=== PATIENT | female | born 1960 | race Caucasian/White ===

== ENCOUNTER → 2019-08-27 11:54 | Outpatient (BNVA) | payer BC, SELFPAY | PROVIDERS: Family Provider Nurse Practitioner Family; PCP Nurse Practitioner Family; Visit Provider Nurse Practitioner Family | DX: R50.9 Fever, unspecified (principal); W57.XXXA Bitten or stung by nonvenomous insect and other nonvenomous arthropods, initial encounter | CPT/HCPCS: 87400; 87635; 87880 ==

== ENCOUNTER → 2019-09-10 10:35 | Outpatient (BNVA) | payer BC, SELFPAY | PROVIDERS: Family Provider Nurse Practitioner Family; PCP Nurse Practitioner Family; Visit Provider Nurse Practitioner Family | DX: U07.1 COVID-19 (principal) | CPT/HCPCS: 87635 ==

== ENCOUNTER → 2019-09-17 11:31 | Outpatient (BNVA) | payer BC, SELFPAY | PROVIDERS: Family Provider Nurse Practitioner Family; PCP Nurse Practitioner Family; Visit Provider Nurse Practitioner Family | DX: U07.1 COVID-19 (principal) | CPT/HCPCS: 87635 ==

== ENCOUNTER 2019-11-28 14:38 | Emergency (ER) | payer BC, SELFPAY ==
[2019-11-28 14:39] VITALS: BP 177/98; PULSE 85; RESP 20; O2SAT 93; BMI 27.3
--- NOTE | 2019-11-28 14:46 | XR_ITS ---
WS: [id number] Portable AP upright chest, 11/28/2019 Clinical Data: Cough/shortness of breath Comparison: None. Findings: No nodules, masses or effusions are seen. The heart is normal. The pulmonary vascularity is not increased. No pneumonia or pneumothorax is seen. XR/XR chest 1V portable [id number] Impression: Negative chest.
--- NOTE | 2019-11-28 14:48 | ECG_ITS ---
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 Measurements Intervals [address] Rate: 83 P: 1 W[place]: 152 QRS: -7 QRSD: 84 T: -1 QT: 341 QTc: 401 Interpretive Statements SINUS RHYTHM MODERATE VOLTAGE CRITERIA FOR LVH, CONSIDER NORMAL VARIANT [MEETS CRITERIA IN ONE OF: R(aVL), S(V1), R(V5), R(V5/V6)+S(V1)] No previous ECG available for comparison Electronically Signed On 11-29-2019 11:35:22 CDT by Nan Austin M.D. [id number] f
[2019-11-28] MEDS: albuterol 8 gm MDI 6 PUFF INHALATION (15:05)
[2019-11-28 15:06] VITALS: PULSE 88; RESP 16; O2SAT 96
[2019-11-28 15:13] VITALS: PULSE 87; RESP 17; O2SAT 97
[2019-11-28 15:17] LABS: Alveolar-Arterial Oxygen Gradi 0.4 mmHg (5-10); Arterial Blood Gas Hematocrit 36.8 % (37-47); Blood Gas Allen Test Pos; Blood Gas Sample Type Arterial; Carboxyhemoglobin 2.5 %THgb (0.4-20.1); HGB O2 Sat 94.6 % (95-100); Ionized Calcium Level - ABG 1.2 mmol/L (1.1-1.4); Methemoglobin 1.1 % (0.4-1.5); Oxygen Saturation ABG 98.1
[2019-11-28 15:19] LABS: Blood Gas Operator Identificat ED; Blood Gas Sample Site Radial, right
[2019-11-28 15:20] LABS: ABG PH Result 7.51 (7.35-7.45); HCO3 ABG 25.7 mmol/L (22-26)
[2019-11-28 15:53] VITALS: BP 167/98; PULSE 94; RESP 24; O2SAT 88
[2019-11-28] MEDS: dexamethasone 4 mg/mL INJ 8 MG IVP (15:55)
[2019-11-28] MEDS: sodium chloride 0.9% 1,000 ML 999 ML IV (15:56)
[2019-11-28 16:04] VITALS: BP 167/98; PULSE 89; RESP 20; O2SAT 97
--- NOTE | 2019-11-28 16:08 | W.ED.SOB ---
HPI - SOB/Dyspnea General: Chief Complaint: Shortness of Breath/Dyspnea Stated Complaint: COUGH/ SOB/ COVID S&S Time Seen by Provider: 11/28/19 14:39 Source: patient Mode of arrival: ambulatory Limitations: no limitations History of Present Illness: HPI Narrative: Katharina is a 59-year-old female who comes in complaining of cough and shortness of breath. Patient states she feels like she has a COVID-19 infection again. She was diagnosed with this at the end of August but at the end of September had a negative test. She states she got back to normal but then over the past 2 to 3 days she has the feeling of the same symptoms again. She states she has subjective fever but has not measured 1. She has a nonproductive cough and shortness of breath with wheezing. Patient does not have any abdominal pain or diarrhea. She denies any skin rashes. She denies any headache, or sore throat. Associated symptoms: Reports fever(s); Deny abdominal pain, chest congestion, chest pain, diaphoresis, dizziness, extremity pain, hemoptysis, lightheadedness, nausea, orthopnea, palpitations, syncope or vomiting Review of Systems Const: Reports: fever(s), chills, body aches, fatigue and malaise; Denies: diaphoresis Eyes: Denies: change in vision, blurry vision, photophobia, eye discomfort, eye discharge or eye redness ENMT: Denies: throat pain, odynophagia, hoarseness, swelling of lips/tongue, ear or mastoid pain, ear discharge, change in hearing or nasal discharge Card: Denies: chest pain, palpitations, irregular heart rhythm, edema, lightheadedness, syncope, pre-syncope, dyspnea on exertion or orthopnea Resp: Reports: dyspnea and wheezing; Denies: productive cough, hemoptysis or chest congestion GI: Denies: abdominal pain, nausea, vomiting, hematemesis, coffee ground emesis, heartburn, diarrhea, constipation, GI cramping, hematochezia or melena : Denies: flank pain, dysuria, urinary frequency, urinary urgency or hematuria Musc: Denies: neck pain, back pain, extremity pain, extremity swelling, joint pain, joint swelling, joint redness, joint warmth or joint stiffness Skin/Breast: Denies: rash, pruritus, erythema or skin tenderness Neuro: Denies: headache(s), numbness in extremities, weakness in extremities, sensory changes, lack of coordination, difficulty walking, dizziness, vertigo, confusion, Slurred speech present or seizure-like activity Barry/Lymph: Denies: easy bruising, easy bleeding, petechiae, purpura or enlarged lymph nodes All/Imm: Denies: urticaria, throat swelling, tongue swelling, facial swelling or acute wheezing PFSH ED PFSH: Medical History DM type 2 (diabetes mellitus, type 2) Hypertension Social History Smoking and tobacco status: never smoked Physical Exam Const: COMMON NORMALS: no acute distress, patient oriented x3, no limitations, healthy appearing and well nourished GENERAL APPEARANCE: cooperative, well kempt and well developed HENMT: COMMON NORMALS: normocephalic, atraumatic, external ears normal, EAC's normal and Normal external nose present HEAD & SCALP: normal to inspection, normocephalic and atraumatic FACE & SINUS: normal facial exam and face symmetric NOSE: Normal external nose present and Normal nares present EXTERNAL EAR: Yes external ears normal EXTERNAL AUDITORY CANAL: EAC's normal MOUTH: Normal oral and palatal mucosa present, lip normal and tongue normal Eye: COMMON NORMALS: Equal, round and reactive pupils present and conjunctivae normal GENERAL EYE: appearance normal, both eyes and all related structures ALIGNMENT: Yes alignment normal PERIORBITAL: periorbital findings normal EYELID: eyelids normal CONJUNCTIVA: Yes conjunctivae normal SCLERA: sclerae normal PUPIL: Yes Equal, round and reactive pupils present Neck/C-Spine: COMMON NORMALS: full ROM, no lymphadenopathy, supple, no meningeal signs and no JVD GENERAL: Yes normal visual inspection and Yes trachea midline Chest: COMMONS NORMALS: normal inspection of the chest and normal palpation of entire chest wall Resp: COMMON NORMALS: normal respiratory effort, No retractions, No use of accessory muscles and clear to auscultation bilaterally EFFORT & INSPECTION: Yes able to speak in complete sentences and Yes symmetric chest movement AUSCULTATION: clear to auscultation bilaterally, no crackles, no rales, no rhonchi and wheezes Cardio: COMMON NORMALS: no JVD, regular rate, regular rhythm, S1 normal heart sound present and S2 normal heart sound present RATE: regular rate RHYTHM: regular rhythm HEART SOUNDS: S1 normal heart sound present, S2 normal heart sound present, no click, no gallops, no murmurs, no rubs and abnormal split S2 GI: COMMON NORMALS: Soft to palpation and No hepatosplenomegaly present PALPATION: Yes Soft to palpation, No Tenderness to palpation present (GI), No Guarding due to palpation present (GI), No Rigid due to palpation, Yes No hepatosplenomegaly present, No Hernia present, No Palpable mass present and No Pulsatile mass present : COMMON NORMALS: Yes no CVA tenderness BLADDER/KIDNEY EXAM: Yes no CVA tenderness EXTERNAL FEMALE EXAM: No Hernia present Back/Pelvis: COMMON NORMALS: no CVA tenderness, thoracic and lumbar spine normal to inspection, no thoracic nor lumbar tenderness and thoraco-lumbar ROM normal Extremity: COMMON NORMALS: normal to inspection, full ROM, capillary refill normal, no joint enlargement, no clubbing, cyanosis or edema and no calf tenderness Neuro: COMMON NORMALS: patient oriented x3, CN's II-XII intact bilaterally, moves all extremities, no focal motor deficits and no sensory deficits noted MENINGEAL SIGNS: Yes no meningeal signs SPEECH: speech normal Psych: COMMON NORMALS: mental status grossly normal, Normal thought process present, cooperative, normal affect, speech normal and activity/motor behavior normal APPEARANCE: Yes well kempt SPEECH: Yes normal speech THOUGHT PROCESS: Normal thought process present Skin: COMMON NORMALS: no rashes or lesions noted, turgor normal, no jaundice, no petechiae and no mottling GENERAL SKIN EXAM: no rashes or lesions noted and turgor normal Course Vital Signs: Vital signs: Vital Signs Temperature 98.2 F 11/28/19 18:45 Pulse Rate 79 11/28/19 18:45 Respiratory Rate 20 H 11/28/19 18:45 Blood Pressure 142/88 11/28/19 18:45 Pulse Oximetry 94 11/28/19 18:45 MDM - SOB/Dyspnea MDM Narrative: Medical decision making narrative: 1814 -patient is feeling much better and is ready to go home. She declines any further evaluation and care. I will go ahead and discharge her home per her request. She is COVID test negative. Patient on steroids for her wheezing, and albuterol inhaler as well and have her follow-up with her primary care physician. Lab Data: Labs: Lab Results 11/28/19 11/28/19 11/28/19 Range/Units 15:07 15:32 15:32 WBC (4.0-10.0) 10^3/ uL RBC (4.1-5.3) 10^6/u L Hgb (11.5-15.3) g/dL Hct (37.0-47.0) % MCV (81-99) fL MCH (28.0-34.0) pg MCHC (30.0-36.0) g/dL RDW (12.1-15.1) % Plt Count (130-400) 10^3/c mm MPV (7.4-10.4) fL Neut % (Auto) % Lymph % (Auto) % Elk % (Auto) % Eos % (Auto) % Baso % (Auto) % Neut # (Auto) (1.8-7.7) 10^3/u L Lymph # (Auto) (0.8-4.8) 10^3/u L Elk # (Auto) (0.2-0.9) 10^3/u L Eos # (Auto) (0.0-0.8) 10^3/u L Baso # (Auto) (0.0-0.1) 10^3/u L Nucleated RBC % (a uto) % Nucleated RBCs # /100WBC D-Dimer (0-0.59) ug/mIFE U Specimen Type Arterial Sample Site Radial, right ABG pH 7.51 H (7.35-7.45) ABG pCO2 32.0 L (35-45) mmHg ABG pO2 105.0 H (80.0-100.0) mmH g ABG HCO3 25.7 (22-26) mmol/L ABG O2 Saturation 98.1 ABG Base Excess 3.0 H (-2.0-2.0) mmol/ L Cody Test Pos A-a O2 Gradient 0.4 L (5-10) mmHg Hematocrit 36.8 L (37-47) % Hgb O2 Saturation 94.6 L (95-100) % Carboxyhemoglobin 2.5 (0.4-20.1) %THgb Methemoglobin 1.1 (0.4-1.5) % Total Hemoglobin 12.0 (12-16) g/dL Sodium 137.0 (131-143) mmol/L Potassium 4.0 (3.5-5.0) mmol/L Glucose 334.0 H (70-115) mg/dL Ionized Calcium 1.2 (1.1-1.4) mmol/L O2 Delivery Device None FiO2 21.0 % Director Of District Office ID Ed Chloride (98-107) mmol/L Carbon Dioxide (22-29) mmol/L Anion Gap (5-19) BUN (8-23) mg/dL Creatinine (0.5-0.9) mg/dL GFR Calculation (90-130) mL/min Calculated Osmolal ity (285-295) mOsm/k g Lactic Acid (0.5-2.2) mmol/L Calcium (8.5-10.5) mg/dL Magnesium (1.7-2.3) mg/dL Total Bilirubin (0.15-1.2) mg/dL AST (0-32) U/L ALT (0-33) U/L Alkaline Phosphata se (35-105) IU/L Total Protein (6.6-8.7) g/dL Albumin (3.5-5.2) g/dL Globulin (1.3-4.6) g/dL Urine Color (Yellow) Urine Appearance (CLEAR) Urine pH (5-7) Ur Specific Gravit y (1.005-1.030) Urine Protein (Negative) Urine Glucose (UA) (Normal) Urine Ketones (Negative) Urine Blood (Negative) Urine Nitrate (Negative) Urine Bilirubin (NEGATIVE) Urine Urobilinogen (Negative) mg/dL Ur Leukocyte Catie ase (Negative) Influenza Type A A g Negative (Negative) Influenza Type B A g Negative (Negative) SARS-CoV-2 Ag (Rap id) Negative (Negative) 11/28/19 11/28/19 11/28/19 Range/Units 15:36 15:36 15:36 WBC 6.6 (4.0-10.0) 10^3/ uL RBC 4.18 (4.1-5.3) 10^6/u L Hgb 12.0 (11.5-15.3) g/dL Hct 36.3 L (37.0-47.0) % MCV 86.8 (81-99) fL MCH 28.7 (28.0-34.0) pg MCHC 33.1 (30.0-36.0) g/dL RDW 12.5 (12.1-15.1) % Plt Count 260 (130-400) 10^3/c mm MPV 10.2 (7.4-10.4) fL Neut % (Auto) 55.4 % Lymph % (Auto) 30.4 % Elk % (Auto) 8.1 % Eos % (Auto) 4.4 % Baso % (Auto) 0.8 % Neut # (Auto) 3.63 (1.8-7.7) 10^3/u L Lymph # (Auto) 2.0 (0.8-4.8) 10^3/u L Elk # (Auto) 0.5 (0.2-0.9) 10^3/u L Eos # (Auto) 0.3 (0.0-0.8) 10^3/u L Baso # (Auto) 0.1 (0.0-0.1) 10^3/u L Nucleated RBC % (a uto) 0 % Nucleated RBCs # 0.0 /100WBC D-Dimer (0-0.59) ug/mIFE U Specimen Type Sample Site ABG pH (7.35-7.45) ABG pCO2 (35-45) mmHg ABG pO2 (80.0-100.0) mmH g ABG HCO3 (22-26) mmol/L ABG O2 Saturation ABG Base Excess (-2.0-2.0) mmol/ L Cody Test A-a O2 Gradient (5-10) mmHg Hematocrit (37-47) % Hgb O2 Saturation (95-100) % Carboxyhemoglobin (0.4-20.1) %THgb Methemoglobin (0.4-1.5) % Total Hemoglobin (12-16) g/dL Sodium 134 L (131-143) mmol/L Potassium 3.8 (3.5-5.0) mmol/L Glucose 330 H (70-115) mg/dL Ionized Calcium (1.1-1.4) mmol/L O2 Delivery Device FiO2 % Director Of District Office ID Chloride 96 L (98-107) mmol/L Carbon Dioxide 27 (22-29) mmol/L Anion Gap 14.8 (5-19) BUN 14 (8-23) mg/dL Creatinine 0.9 (0.5-0.9) mg/dL GFR Calculation 63.9 L (90-130) mL/min Calculated Osmolal ity 287 (285-295) mOsm/k g Lactic Acid 1.9 (0.5-2.2) mmol/L Calcium 9.9 (8.5-10.5) mg/dL Magnesium 2.1 (1.7-2.3) mg/dL Total Bilirubin 0.3 (0.15-1.2) mg/dL AST 21 (0-32) U/L ALT 28 (0-33) U/L Alkaline Phosphata se 98 (35-105) IU/L Total Protein 8.0 (6.6-8.7) g/dL Albumin 4.7 (3.5-5.2) g/dL Globulin 3.3 (1.3-4.6) g/dL Urine Color (Yellow) Urine Appearance (CLEAR) Urine pH (5-7) Ur Specific Gravit y (1.005-1.030) Urine Protein (Negative) Urine Glucose (UA) (Normal) Urine Ketones (Negative) Urine Blood (Negative) Urine Nitrate (Negative) Urine Bilirubin (NEGATIVE) Urine Urobilinogen (Negative) mg/dL Ur Leukocyte Catie ase (Negative) Influenza Type A A g (Negative) Influenza Type B A g (Negative) SARS-CoV-2 Ag (Rap id) (Negative) 11/28/19 11/28/19 Range/Units 15:36 17:12 WBC (4.0-10.0) 10^3/ uL RBC (4.1-5.3) 10^6/u L Hgb (11.5-15.3) g/dL Hct (37.0-47.0) % MCV (81-99) fL MCH (28.0-34.0) pg MCHC (30.0-36.0) g/dL RDW (12.1-15.1) % Plt Count (130-400) 10^3/c mm MPV (7.4-10.4) fL Neut % (Auto) % Lymph % (Auto) % Elk % (Auto) % Eos % (Auto) % Baso % (Auto) % Neut # (Auto) (1.8-7.7) 10^3/u L Lymph # (Auto) (0.8-4.8) 10^3/u L Elk # (Auto) (0.2-0.9) 10^3/u L Eos # (Auto) (0.0-0.8) 10^3/u L Baso # (Auto) (0.0-0.1) 10^3/u L Nucleated RBC % (a uto) % Nucleated RBCs # /100WBC D-Dimer <= 0.27 (0-0.59) ug/mIFE U Specimen Type Sample Site ABG pH (7.35-7.45) ABG pCO2 (35-45) mmHg ABG pO2 (80.0-100.0) mmH g ABG HCO3 (22-26) mmol/L ABG O2 Saturation ABG Base Excess (-2.0-2.0) mmol/ L Cody Test A-a O2 Gradient (5-10) mmHg Hematocrit (37-47) % Hgb O2 Saturation (95-100) % Carboxyhemoglobin (0.4-20.1) %THgb Methemoglobin (0.4-1.5) % Total Hemoglobin (12-16) g/dL Sodium (131-143) mmol/L Potassium (3.5-5.0) mmol/L Glucose (70-115) mg/dL Ionized Calcium (1.1-1.4) mmol/L O2 Delivery Device FiO2 % Director Of District Office ID Chloride (98-107) mmol/L Carbon Dioxide (22-29) mmol/L Anion Gap (5-19) BUN (8-23) mg/dL Creatinine (0.5-0.9) mg/dL GFR Calculation (90-130) mL/min Calculated Osmolal ity (285-295) mOsm/k g Lactic Acid (0.5-2.2) mmol/L Calcium (8.5-10.5) mg/dL Magnesium (1.7-2.3) mg/dL Total Bilirubin (0.15-1.2) mg/dL AST (0-32) U/L ALT (0-33) U/L Alkaline Phosphata se (35-105) IU/L Total Protein (6.6-8.7) g/dL Albumin (3.5-5.2) g/dL Globulin (1.3-4.6) g/dL Urine Color Yellow (Yellow) Urine Appearance Clear (CLEAR) Urine pH 7.0 (5-7) Ur Specific Gravit y 1.015 (1.005-1.030) Urine Protein Neg (Negative) Urine Glucose (UA) Norm (Normal) Urine Ketones 1+ H (Negative) Urine Blood Neg (Negative) Urine Nitrate Negative (Negative) Urine Bilirubin Neg (NEGATIVE) Urine Urobilinogen 4 H (Negative) mg/dL Ur Leukocyte Catie ase Negative (Negative) Influenza Type A A g (Negative) Influenza Type B A g (Negative) SARS-CoV-2 Ag (Rap id) (Negative) Imaging Data^: CXR: Attestation: I personally reviewed and interpreted this imaging study as follows: My impression: No acute cardiopulmonary findings. EKG Data^: EKG 1: Attestation: I personally reviewed and interpreted this EKG as follows: EKG Interpretation Date: 11/28/19 EKG interpretation time: 15:24 Interpretation: Normal sinus rhythm at 83 beats a minute, no acute ST or T wave changes. Discharge Plan Discharge Patient Disposition: Home Clinical Impression: Acute bronchitis with bronchospasm Condition: Stable Prescriptions: New prednisone 10 mg tablet 20 mg PO TID 5 Days Qty: 30 RF: 0 doxycycline hyclate 100 mg capsule 100 mg PO BID 10 Days Qty: 20 RF: 0 albuterol sulfate 90 mcg/actuation HFA aerosol inhaler 2 inh INHALATION Q4H PRN (Reason: shortness of breath or wheezing) Qty: 6.7 RF: 0 No Action metformin 1,000 mg tablet 1,000 mg PO BID Qty: 180 RF: 0 atorvastatin 10 mg tablet 10 mg PO DAILY Qty: 90 RF: 0 hydrochlorothiazide 25 mg tablet 25 mg PO DAILY Qty: 90 RF: 0 spironolactone 25 mg tablet 25 mg PO BID Qty: 180 RF: 0 amlodipine 5 mg tablet 5 mg PO DAILY Qty: 90 RF: 0 glimepiride 2 mg tablet 2 mg PO BID Qty: 180 RF: 0 rivastigmine tartrate 3 mg capsule 3 mg PO BID Qty: 180 RF: 0 acyclovir 400 mg tablet 400 mg PO DAILY Qty: 90 RF: 0 venlafaxine 75 mg capsule,extended release 24hr 75 mg PO DAILY Qty: 90 RF: 1 albuterol sulfate 90 mcg/actuation HFA aerosol inhaler 1 puff INHALATION QID Qty: 18 RF: 0 lisinopril 20 mg tablet See Rx Instructions .ROUTE .COMPLEX Qty: 90 RF: 0 Discharge Orders: Discharge Order (Routine); Ordered 11/28/19 Ordered By: Etelvina Blount Referrals: Lyudmila Branch FNP [Primary Care Provider] - 1-3 days Discharge Diet: Advance as tolerated Discharge Activity: Increase activity as tolerated Patient Instructions: Acute Bronchitis (ED) Activity Restrictions/Additional Instructions: Please return to the ER immediately for any of the signs or symptoms listed on your discharge instruction sheets, worsening/changing of your symptoms, you are not getting better as quickly as expected, or for ANY other cause or concerns. If your symptoms change or worsen in any way please return here to the ER immediately for recheck. 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
[2019-11-28 16:10] LABS: Basophils # 0.1 10^3/uL (0.0-0.1); Basophils % 0.8 %; Eosinophils # 0.3 10^3/uL (0.0-0.8); Eosinophils % 4.4 %; Hematocrit 36.3 % (37.0-47.0); Lymphocytes % 30.4 %; Mean Corpuscular HGB Conc 33.1 g/dL (30.0-36.0); Mean Corpuscular Hemoglobin 28.7 pg (28.0-34.0); Mean Corpuscular Volume 86.8 fL (81-99); Mean Platelet Volume 10.2 fL (7.4-10.4); Monocytes # 0.5 10^3/uL (0.2-0.9); Monocytes % 8.1 %; Neutrophils # 3.63 10^3/uL (1.8-7.7); Neutrophils % 55.4 %; Nucleated Red Blood Cells % 0 %; Platelet Count 260 10^3/cmm (130-400); Red Blood Count 4.18 10^6/uL (4.1-5.3); Red Cell Distribution Width 12.5 % (12.1-15.1); White Blood Count 6.6 10^3/uL (4.0-10.0)
[2019-11-28 16:34] LABS: Lactic Sepsis W/Reflex 1.9 mmol/L (0.5-2.2)
[2019-11-28 16:35] LABS: Alanine Aminotransferase 28 U/L (0-33); Albumin Level 4.7 g/dL (3.5-5.2); Alkaline Phosphatase 98 IU/L (35-105); Anion Gap 14.8 (5-19); Aspartate Amino Transferase 21 U/L (0-32); Blood Urea Nitrogen 14 mg/dL (8-23); Calcium 9.9 mg/dL (8.5-10.5); Carbon Dioxide 27 mmol/L (22-29); Chloride 96 mmol/L (98-107); Globulin 3.3 g/dL (1.3-4.6); Glomerular Filtration Rate 63.9 mL/min (90-130); Glucose 330 mg/dL (65-115); Magnesium 2.1 mg/dL (1.7-2.3); Osmolality Calculated 287 mOsm/kg (285-295); Potassium 3.8 mmol/L (3.5-5.1); Sodium 134 mmol/L (136-145); Total Bilirubin 0.3 mg/dL (0.15-1.2)
[2019-11-28 16:49] LABS: Influenza A by IFA Negative (Negative); Influenza B by IFA Negative (Negative)
[2019-11-28 17:06] LABS: SARS Covid-2 Antigen Negative (Negative)
[2019-11-28 17:15] LABS: Add Urine Microscopic? NO
[2019-11-28 17:25] LABS: Bilirubin Urine Neg (NEGATIVE); Blood Urine Neg (Negative); Glucose Urine UA Norm (Normal); Ketones Urine 1+ (Negative); Leukocyte Esterase Urine Negative (Negative); Nitrate Urine Negative (Negative); Protein Urine Neg (Negative); Specific Gravity, Urine 1.015 (1.005-1.030); Urine Appearance Clear (CLEAR); Urine Color Yellow (Yellow); Urobilinogen Urine 4 mg/dL (Negative)
[2019-11-28 18:05] LABS: D Dimer <= 0.27 ug/mIFEU (0-0.59)
[2019-11-28] MEDS: doxycycline 100 mg Tablet PO (18:29)
[2019-11-28] MEDS: predniSONE 20 mg Tablet 60 MG PO (18:29)
[2019-11-28 18:45] VITALS: BP 142/88; PULSE 74; PULSE 79; RESP 16; RESP 20; TEMP 36.8; O2SAT 94; O2SAT 95
[2019-11-28] MEDS: albuterol 8 gm MDI 2 PUFF INHALATION (18:48)
== END 2019-11-28 18:50 | disposition home or self-care (01) ==
PROVIDERS: Emergency Provider Emergency Medicine; Family Provider Nurse Practitioner Family; PCP Nurse Practitioner Family
DX: J40 Bronchitis, not specified as acute or chronic (principal); E11.9 Type 2 diabetes mellitus without complications; I10 Essential (primary) hypertension
CPT/HCPCS: 12345; 36600; 71045; 80051; 80053; 81003; 82810; 83605; 83735; 83986; 85025; 85378; 87040; 87426; 87804; 93005; 94640; 96361; 96374; 96375; 99283; 99284; J1100; J3535; J7030; J7512

== ENCOUNTER 2019-12-12 16:33 | Outpatient (CLI) | payer BC, SELFPAY ==
--- NOTE | 2019-12-12 16:44 | XR_ITS ---
WS: [id number] PA and lateral chest, 12/12/2019 Clinical Data: SOB Comparison: Portable chest, 11/28/2019. Findings: No nodules, masses or effusions are seen. The heart is normal. The pulmonary vascularity is not increased. No pneumonia or pneumothorax is seen. XR/XR chest 2V* [id number] Impression: Negative chest.
== END 2019-12-12 16:34 | disposition home or self-care (01) ==
LOC: RAD 16:37
PROVIDERS: PCP Nurse Practitioner Family; Visit Provider Internal Medicine Pulmonary Disease
DX: R06.02 Shortness of breath (principal)
CPT/HCPCS: 71046

== ENCOUNTER → 2020-01-03 11:57 | Outpatient (BNVA) | payer SELFPAY | PROVIDERS: PCP Nurse Practitioner Family; Visit Provider Emergency Medicine | DX: J21.9 Acute bronchiolitis, unspecified (principal) | CPT/HCPCS: 87635 ==

== ENCOUNTER 2020-01-27 09:15 | Outpatient (CLI) | payer BC, SELFPAY | END 2020-01-27 09:16 | LOC: RT 01-30 07:23 | PROVIDERS: PCP Nurse Practitioner Family; Visit Provider Internal Medicine Pulmonary Disease | DX: E11.40 Type 2 diabetes mellitus with diabetic neuropathy, unspecified (principal); E11.69 Type 2 diabetes mellitus with other specified complication; E78.5 Hyperlipidemia, unspecified; I10 Essential (primary) hypertension | CPT/HCPCS: 99204 ==

== ENCOUNTER → 2020-01-28 08:25 | Outpatient (BNVA) | payer BC, SELFPAY | PROVIDERS: PCP Nurse Practitioner Family; Visit Provider Internal Medicine | DX: Z23 Encounter for immunization (principal); E78.5 Hyperlipidemia, unspecified; E11.69 Type 2 diabetes mellitus with other specified complication | CPT/HCPCS: 80061; 83036 ==

== ENCOUNTER → 2020-04-27 16:13 | Outpatient (BNVA) | payer BC, SELFPAY | PROVIDERS: PCP Nurse Practitioner Family; Visit Provider Internal Medicine | DX: E11.40 Type 2 diabetes mellitus with diabetic neuropathy, unspecified (principal); E11.69 Type 2 diabetes mellitus with other specified complication; E78.5 Hyperlipidemia, unspecified; I10 Essential (primary) hypertension | CPT/HCPCS: 99214 ==

== ENCOUNTER → 2020-04-28 08:29 | Outpatient (BNVA) | payer BC, SELFPAY | PROVIDERS: PCP Nurse Practitioner Family; Visit Provider Internal Medicine | DX: E11.69 Type 2 diabetes mellitus with other specified complication (principal); E78.5 Hyperlipidemia, unspecified | CPT/HCPCS: 83036 ==

== ENCOUNTER → 2020-05-11 10:34 | Outpatient (BNVA) | payer BC, SELFPAY | PROVIDERS: PCP Nurse Practitioner Family; Visit Provider Nurse Practitioner Family | DX: I10 Essential (primary) hypertension (principal); E78.5 Hyperlipidemia, unspecified; E11.40 Type 2 diabetes mellitus with diabetic neuropathy, unspecified; F41.9 Anxiety disorder, unspecified | CPT/HCPCS: 80053 ==

== ENCOUNTER → 2020-08-10 10:30 | Outpatient (BNVA) | payer BC, SELFPAY | PROVIDERS: PCP Nurse Practitioner Family; Visit Provider Nurse Practitioner Family | DX: R82.90 Unspecified abnormal findings in urine (principal); R25.2 Cramp and spasm; E11.9 Type 2 diabetes mellitus without complications; R53.83 Other fatigue; I10 Essential (primary) hypertension; E78.5 Hyperlipidemia, unspecified; F41.9 Anxiety disorder, unspecified | CPT/HCPCS: 80053; 80061; 81000; 83036; 83735; 84443 ==

== ENCOUNTER → 2020-11-17 08:59 | Outpatient (BNVA) | payer BC, SELFPAY | PROVIDERS: PCP Nurse Practitioner Family; Visit Provider Nurse Practitioner Family | DX: E11.69 Type 2 diabetes mellitus with other specified complication (principal); R82.90 Unspecified abnormal findings in urine; R53.83 Other fatigue; I10 Essential (primary) hypertension; N39.0 Urinary tract infection, site not specified | CPT/HCPCS: 80053; 81000; 83036; 84443; 85025 ==

== ENCOUNTER → 2021-02-15 14:31 | Outpatient (BNVA) | payer BC, SELFPAY | PROVIDERS: PCP Nurse Practitioner Family; Visit Provider Internal Medicine | DX: E11.69 Type 2 diabetes mellitus with other specified complication (principal); E11.40 Type 2 diabetes mellitus with diabetic neuropathy, unspecified; E78.5 Hyperlipidemia, unspecified; F17.210 Nicotine dependence, cigarettes, uncomplicated; Z79.84 Long term (current) use of oral hypoglycemic drugs | CPT/HCPCS: 99214 ==

== ENCOUNTER → 2021-06-21 08:45 | Outpatient (BNVA) | payer BC, SELFPAY | PROVIDERS: PCP Nurse Practitioner Family; Visit Provider Nurse Practitioner Family | DX: I10 Essential (primary) hypertension (principal); E78.5 Hyperlipidemia, unspecified | CPT/HCPCS: 80053; 80061; 83036 ==

== ENCOUNTER 2022-02-02 10:25 | Outpatient (CLI) | payer OTHER, SELFPAY ==
--- NOTE | 2022-02-02 10:32 | XRR_ITS ---
PROCEDURE INFORMATION: Exam: XR Right Hand Exam date and time: 02/02/2022 10:33 AM Age: 61 years old Clinical indication: Right; Patient HX: RT hand pain thumb area, thinks she hit thumb 1-2 months ago; Additional info: M79.641 - pain in right hand TECHNIQUE: Imaging protocol: Radiologic exam of the Right hand. Views: 3 or more views. Total images: 4 COMPARISON: No relevant prior studies available. FINDINGS: Bones/joints: Normal. Soft tissues: Normal. XR/XR hand RT min 3V* [id number] IMPRESSION: No acute findings.
== END 2022-02-02 10:26 | disposition home or self-care (01) ==
LOC: RAD 10:27
PROVIDERS: PCP Nurse Practitioner Family; Visit Provider Nurse Practitioner Family
DX: M79.641 Pain in right hand (principal)
CPT/HCPCS: 73130

== ENCOUNTER 2022-03-02 05:39 | Day surgery (SDC) | payer OTHER, SELFPAY ==
[2022-03-01 10:08] VITALS: BMI 22.6
[2022-03-02 06:05] VITALS: BP 125/70; PULSE 97; RESP 18; TEMP 36.1; O2SAT 96
[2022-03-02 06:22] LABS: Glucose Point of Care 99 mg/dL (70-110)
[2022-03-02] MEDS: ketorolac 30 mg/mL INJ IVP (06:22)
[2022-03-02] MEDS: acetaminophen 1,000 MG/100 ML PIGGYBACK 400 MG IV (06:23)
[2022-03-02] MEDS: sodium chloride 0.9% 1,000 ML 30 ML IV (06:24)
--- NOTE | 2022-03-02 06:36 | P.ANESASSM_ITS ---
Pre-Anesthetic Assessment Height/Weight: Height 1.68 m Weight 63.503 kg Temp Pulse Resp BP Pulse Ox O2 Del Method 97.0 F L 97 18 125/70 96 03/02/22 06:05 03/02/22 06:05 03/02/22 06:05 03/02/22 06:05 03/02/22 06:05 03/02/22 06:10 Preop Diagnosis: Right thumb trigger Operation Date: 03/02/22 07:00 Proposed Procedures p right thumb trigger finger release [id number] M65.311(Right) - Feliciano Jocy, DO Familial anesthetic complications: None Was Beta Griselda taken within 24 hours: N/A Was Clonidine taken within 24 hours: N/A Last intake: Intake Last Liquid Date 03/01/22 Last Liquid Time 20:00 Last Solid Date 03/01/22 Last Solid Time 20:00 Social No alcohol and No tobacco Exam alert, oriented x 3, clear to auscultation bilaterally and regular rate & rhythm Airway Mallampati: Class II Dentition: other (missing) Pulmonary None reported asthma-copd only during her covid episode CV/HEM None reported None reported Hepatic None reported GI Gastroesophageal Reflux Disease Metabolic Diabetes Mellitus and Hyperlipidemia Neuropsych Transient Ischemic Attack Anesthetic Plan ASA status: 3 Anesthesia: General Risk of > 500 ml blood loss (7ml/kg in children): No Medications/Allergies Home Medications Medication Instructions Recorded Confirmed Last Taken Type aspirin 81 mg tablet,delayed 81 mg PO DAILY 02/15/21 03/01/22 02/28/22 History release semaglutide 0.25 mg or 0.5 mg (2 0.5 mg (0.4 mL) SUBCUT .once 08/02/21 03/01/22 02/25/22 Rx mg/1.5 mL) subcutaneous pen weekly #10 mL injector ([email or web address]) rivastigmine tartrate 3 mg capsule 3 mg PO BID #180 caps 11/01/21 03/02/22 03/02/22 Rx acyclovir 400 mg tablet 400 mg PO DAILY 03/01/22 03/02/22 03/02/22 History trazodone 100 mg tablet 200 mg PO DAILY 03/01/22 03/02/22 03/01/22 History venlafaxine 50 mg tablet 50 mg PO DAILY 03/01/22 03/02/22 03/02/22 History Allergies Allergy/AdvReac Type Severity Reaction Status Date / Time No Known Allergies Allergy Verified 03/01/22 10:05 Current Medications Generic Name Dose Route Start Last Admin Trade Name Brandon PRN Reason Stop Dose Admin Sodium Chloride 1,000 mls @ 30 mls/hr 03/02/22 06:00 03/02/22 06:24 Sodium Chloride 0.9% IV 03/03/22 05:59 30 mls/hr .Q24H CONSTANCE Administration PFSH Anesthesia Medical History Anxiety DM type 2 (diabetes mellitus, type 2) History of cleft palate Hyperlipidemia Hypertension Type 2 diabetes mellitus without complication Surgical History H/O: section H/O: hysterectomy Family History Mother Cancer breast Alzheimer disease Father Thyroid condition Social History Smoking and tobacco status: current some day smoker Quit status (tobacco): has quit using tobacco Year quit tobacco: 2019 - >0.5 PPD x 5 Years Alcohol intake: current Alcohol intake frequency: holidays/special occasions only Lives independently: Yes Household members: spouse Marital status: Current occupational status: employed Current occupation: retired History of recent travel: No Current gender identity: Female Data Anesthesia Cardiac Studies: No Data to Display
--- NOTE | 2022-03-02 06:55 | W.PM.OPSUD ---
Surgery/Procedure H&P Update DATE OF PROCEDURE: March 02, 2022 DATE H&P PERFORMED: 02/15/22 CHANGES TO PREVIOUS DOCUMENTATION: None PREOP DIAGNOSIS: Right thumb trigger PRIMARY INDICATION FOR PROCEDURE: Right thumb trigger finger PLANNED PROCEDURE: Operation Date: 03/02/22 07:00 Proposed Procedures p right thumb trigger finger release [id number] M65.311(Right) - Feliciano Sandra DO
[2022-03-02] MEDS: ceFAZolin 2,000 MG in sodium chloride 0.9% (plus) 50 ML 100 MG IV (07:00)
--- NOTE | 2022-03-02 07:41 | P.OP_ITS ---
Brief Operative Note Date of procedure: 03/02/22 Pre-op diagnosis: Right thumb trigger Post-op diagnosis: same Procedure Done: Right thumb trigger finger release Surgeon: Feliciano Sandra Estimated blood loss (mL): 1 Complications: None Post-op Plan: Patient taken to PACU in stable condition dressing on in place will be given appropriate discharge instructions as well as pain medication postoperatively. She will follow-up with me in the office in 2 weeks. Elevation and ice as needed for pain and swelling. Encourage range of motion. Contact the office for any questions or concerns. Condition: stable Disposition: same day Coding Level of Care Code Acute [place] Representative for Sharlene Colon
--- NOTE | 2022-03-02 07:42 | PM.PACU ---
PACU note Narrative: Patient recovering well in PACU. Dressing on in place clean dry and intact. Patient is able to wiggle thumb. Dressing limits examination. Fingertip warm well perfused. Decreased sensation to the thumb secondary to local block. Exam: awake Disposition: discharged
--- NOTE | 2022-03-02 07:43 | PM.OP ---
Operative Report Date of procedure: March 02, 2022 Pre-op diagnosis: Preop Diagnosis Right thumb trigger Post-op diagnosis: Same Procedure done: Right thumb trigger finger release Surgeon: Feliciano Sandra DO Estimated blood loss: 1 cc 10 minutes IV fluids: See anesthesia record Complications: None Findings: See operative report narrative Condition: stable Disposition: same day Brief History: Patient was seen and evaluated in the outpatient setting and is failed conservative treatment for right thumb trigger finger. At this point time she is had severe pain and through shared decision-making she elected to proceed with surgical intervention of right thumb trigger finger. We detailed out the risk benefits complication alternatives of surgical nonsurgical treatment options at this point time she like to proceed with surgical intervention of a right thumb trigger finger release. All questions answered at this time. Consent was obtained in the office Procedure: Patient was seen evaluate in the preoperative holding area. Consent was reviewed with patient and signed. Correct extremity was then marked. Patient was evaluated by anesthesia department once cleared for surgery she was taken back to the operative suite. She was transported onto an OR table. The right upper extremities placed on an arm table. Patient was appropriately secured to the bed and all bony prominences were well-padded. Patient then subsequently underwent anesthesia per the anesthesia department. A nonsterile tourniquet was applied to the right upper extremity. Patient received appropriate preoperative antibiotics final timeout performed. Under sterile aseptic technique patient's right thumb was injected with local anesthesia. Ultimately anesthetized patient right upper extremity was then prepped and draped in therapeutic fashion. Esmarch tourniquet was used exsanguinate right upper extremity tourniquet was insufflated to 250 mmHg. A standard transverse incision over the flexor crease over the MP joint centered directly over the A1 molly was then subsequently made. Care was made to make an incision just through skin. Once encountered subcutaneous tissue I then switched to dissection scissors and spread longitudinally and the path of the flexor tendon. I then came directly down over to the A1 molly and the flexor tendon. Beside each molly I then spread longitudinally in line with the digital nerves and the nerves were identified and protected with Kasdan retractors. This point time I was able to mobilize and directly visualize the A1 molly. At this point time I used a scalpel to create a small rent in the A1 molly and then switched to dissection scissors and released this to its entirety distally. Care was made not to injure the oblique molly. Next I subsequently released the A1 molly to its entirety proximally. The tendon was then mobilized with a rag nail and was pulled out of the incision and no triggering or masses were noted. I took the thumb through range of motion and patient had no triggering or catching. Wound was then thoroughly irrigated. Tourniquet was deflated. Hemostasis satisfactory with bipolar electrocautery. Digital nerves were protected throughout this entirety of this case. I then subsequently closed the skin with interrupted nylon suture. Xeroform 4 x 4's ABD and a bulky soft dressing was then applied. Patient was then awakened from anesthesia and taken to PACU in stable condition. Disposition: Patient taken to PACU in stable condition. Will receive appropriate discharge instructions as well as pain medication postoperatively. She will follow-up with me in the office in 2 weeks for repeat evaluation. Patient understands agrees with current plan. All questions answered
[2022-03-02 07:45] VITALS: BP 115/75; PULSE 70; RESP 16; TEMP 36.1; O2SAT 94
[2022-03-02 07:50] VITALS: BP 117/74; PULSE 70; RESP 16; TEMP 36.1; O2SAT 96
[2022-03-02 07:54] VITALS: BP 111/82; PULSE 78; RESP 18; TEMP 36.1; O2SAT 95
[2022-03-02 08:15] VITALS: BP 123/82; RESP 18; TEMP 36.4; O2SAT 96
[2022-03-02] MEDS: HYDROcodone-acetaminophen 5-325 mg Tablet 1 TAB PO (08:39)
[2022-03-02] MEDS: ondansetron 2 mg/ML SDV 2 mL 4 MG IVP (08:39)
--- NOTE | 2022-03-02 14:58 | ANE.PACU2 ---
Inpatient post-anesthesia follow up: Airway intact: Yes Vital signs: Temperature 97.6 F Pulse Rate 78 Respiratory Rate 18 Blood Pressure 123/82 Pulse Oximetry 96 Oxygen Delivery Me thod Room Air Oxygen Flow Rate Fraction of Inspir ed Oxygen Hydration adequate: Yes Nausea and vomiting: No Pain level: 1 Mental status: Baseline
== END 2022-03-02 08:41 | disposition home or self-care (01) ==
PROVIDERS: PCP Nurse Practitioner Family; Visit Provider Student in an Organized Health Care Education/Training Program
PROC: (CPT 26055; principal; 2022-03-02 07:00)
DX: M65.311 Trigger thumb, right thumb (principal); E78.5 Hyperlipidemia, unspecified; K21.9 Gastro-esophageal reflux disease without esophagitis; Z86.73 Personal history of transient ischemic attack (TIA), and cerebral infarction without residual deficits; Z79.82 Long term (current) use of aspirin; E11.9 Type 2 diabetes mellitus without complications; I10 Essential (primary) hypertension
CPT/HCPCS: 26055; 36416; 82962; J0131; J0690; J1885; J2405; J2704; J2795; J3490; J7030

== ENCOUNTER 2022-04-19 09:55 | Outpatient (CLI) | payer OTHER, SELFPAY ==
[2022-04-19 10:43] LABS: Alanine Aminotransferase 15 U/L (0-33); Albumin Level 4.2 g/dL (3.5-5.2); Alkaline Phosphatase 93 U/L (35-105); Anion Gap 9.3 (5-19); Aspartate Amino Transferase 16 U/L (0-32); Blood Urea Nitrogen 13 mg/dL (8-23); Calcium 9.5 mg/dL (8.5-10.5); Carbon Dioxide 30 mmol/L (22-29); Chloride 101 mmol/L (98-107); Chol HDL Ratio 3.64 mg/dL (0.0-4.40); Cholesterol 160 mg/dL (0-200); Globulin 2.7 g/dL (1.3-4.6); Glomerular Filtration Rate 101.3 mL/min (90-130); Glucose 85 mg/dL (65-115); HDL Cholesterol 44 mg/dL (60-100); LDL Cholesterol Calculated 96 mg/dL (50-129); LDL HDL Ratio 2.18 RATIO (0.00-3.22); Osmolality Calculated 281 mOsm/kg (285-295); Potassium 4.3 mmol/L (3.5-5.1); Sodium 136 mmol/L (136-145); Total Bilirubin 0.2 mg/dL (0.15-1.2); Total Protein 6.9 g/dL (6.6-8.7); Triglycerides 98 mg/dL (0-150)
[2022-04-19 10:44] LABS: Estmated Average Glucose 108; Hemoglobin A1C 5.4 % (4.0-6.0)
== END 2022-04-19 09:56 | disposition home or self-care (01) ==
LOC: LAB 10:00
PROVIDERS: PCP Nurse Practitioner Family; Visit Provider Internal Medicine
DX: E11.9 Type 2 diabetes mellitus without complications (principal)
CPT/HCPCS: 36415; 80053; 80061; 83036

== ENCOUNTER 2022-08-02 10:46 | Outpatient (CLI) | payer OTHER, SELFPAY ==
[2022-08-02 12:49] LABS: Estmated Average Glucose 103; Hemoglobin A1C 5.2 % (4.0-6.0)
== END 2022-08-02 10:47 | disposition home or self-care (01) ==
PROVIDERS: PCP Nurse Practitioner Family; Visit Provider Internal Medicine
DX: E11.9 Type 2 diabetes mellitus without complications (principal)
CPT/HCPCS: 36415; 83036

== ENCOUNTER 2022-11-02 11:17 | Outpatient (CLI) | payer OTHER, SELFPAY ==
[2022-11-02 12:15] LABS: Estmated Average Glucose 114; Hemoglobin A1C 5.6 % (4.0-6.0)
== END 2022-11-02 11:18 | disposition home or self-care (01) ==
PROVIDERS: PCP Nurse Practitioner Family; Visit Provider Internal Medicine
DX: E11.40 Type 2 diabetes mellitus with diabetic neuropathy, unspecified (principal); E78.5 Hyperlipidemia, unspecified; R63.5 Abnormal weight gain
CPT/HCPCS: 36415; 83036

== ENCOUNTER 2023-05-04 10:11 | Outpatient (CLI) | payer OTHER, SELFPAY ==
[2023-05-04 11:18] LABS: Chol HDL Ratio 4.13 mg/dL (0.0-4.40); Cholesterol 190 mg/dL (0-200); HDL Cholesterol 46 mg/dL (60-100); LDL Cholesterol Calculated 122 mg/dL (50-129); LDL HDL Ratio 2.65 RATIO (0.00-3.22); Triglycerides 108 mg/dL (0-150)
[2023-05-04 11:49] LABS: Estmated Average Glucose 114; Hemoglobin A1C 5.6 % (4.0-6.0)
== END 2023-05-04 10:12 | disposition home or self-care (01) ==
LOC: LAB 10:17
PROVIDERS: PCP Nurse Practitioner Family; Visit Provider Internal Medicine
DX: E11.40 Type 2 diabetes mellitus with diabetic neuropathy, unspecified (principal); E78.5 Hyperlipidemia, unspecified; R63.5 Abnormal weight gain
CPT/HCPCS: 36415; 80061; 83036

== ENCOUNTER 2023-07-24 12:08 | Outpatient (CLI) | payer OTHER, SELFPAY ==
--- NOTE | 2023-07-24 13:30 | XR_ITS ---
WS: [id number] DEXA (DUAL ENERGY X-RAY ABSORPTIOMETRY) Bone mineral density was performed using a Confide machine. HISTORY: Vit D deficiency R/O osteoporosis COMPARISON: None available. Lumbar spine BMD (L1-L4): 0.803 g/cm2 T score: -3.1 Z score: -2.2 Total hip BMD: Left: 0.777 g/cm2. T score: -1.8 Z score: -1.1 Right: 0.783 g/cm2. T score: -1.8 Z score: -1.1 10 year probability of a major osteoporotic fracture is 34.8%. IMPRESSION: OSTEOPENIA based upon the WHO classification for females.
== END 2023-07-24 12:09 | disposition home or self-care (01) ==
LOC: RAD 12:08
PROVIDERS: PCP Nurse Practitioner Family; Visit Provider Internal Medicine
DX: Z13.820 Encounter for screening for osteoporosis (principal); E55.9 Vitamin D deficiency, unspecified; Z82.62 Family history of osteoporosis; M85.80 Other specified disorders of bone density and structure, unspecified site
CPT/HCPCS: 77080

== ENCOUNTER 2023-10-09 10:21 | Outpatient (CLI) | payer OTHER, SELFPAY ==
[2023-10-09 11:07] LABS: Creatinine Urine, Random 146 mg/dL (28-217); Microalbum Creatinine Ratio Ur 7 mg/dL (0-20); Microalbumin Random Urine 1 ug/dL (0-20)
[2023-10-09 11:12] LABS: Alanine Aminotransferase 16 U/L (0-33); Albumin Level 4.1 g/dL (3.5-5.2); Alkaline Phosphatase 99 U/L (35-105); Anion Gap 11.2 (5-19); Aspartate Amino Transferase 15 U/L (0-32); Blood Urea Nitrogen 15 mg/dL (8-23); Calcium 8.9 mg/dL (8.5-10.5); Carbon Dioxide 29 mmol/L (22-29); Chloride 103 mmol/L (98-107); Chol HDL Ratio 4.58 mg/dL (0.0-4.40); Cholesterol 206 mg/dL (0-200); Free T4 Free Thyroxine 1.01 ng/dL (0.82-1.77); Globulin 2.7 g/dL (1.3-4.6); Glomerular Filtration Rate 84.2 mL/min (90-130); Glucose 185 mg/dL (65-115); HDL Cholesterol 45 mg/dL (60-100); LDL Cholesterol Calculated 117 mg/dL (50-129); Osmolality Calculated 294 mOsm/kg (285-295); Potassium 4.2 mmol/L (3.5-5.1); Sodium 139 mmol/L (136-145); Thyroid Stimulating Hormone 1.15 uIU/mL (0.27-4.20); Total Bilirubin 0.2 mg/dL (0.15-1.2); Total Protein 6.8 g/dL (6.6-8.7); Triglycerides 221 mg/dL (0-150)
[2023-10-09 11:45] LABS: 25 Hydroxy Vitamin D 44 ng/mL (30-100)
[2023-10-09 11:59] LABS: Estmated Average Glucose 126
== END 2023-10-09 10:22 | disposition home or self-care (01) ==
LOC: LAB 10:23
PROVIDERS: PCP Nurse Practitioner Family; Visit Provider Internal Medicine
DX: E11.9 Type 2 diabetes mellitus without complications (principal); E11.69 Type 2 diabetes mellitus with other specified complication; E55.9 Vitamin D deficiency, unspecified; E78.5 Hyperlipidemia, unspecified
CPT/HCPCS: 80053; 80061; 82044; 82306; 82310; 83036; 83970; 84439; 84443

== ENCOUNTER 2024-04-16 12:15 | Outpatient (CLI) | payer OTHER, SELFPAY ==
[2024-04-16 13:07] LABS: Creatinine Urine, Random 144 mg/dL (28-217); Microalbum Creatinine Ratio Ur 14 mg/dL (0-20); Microalbumin Random Urine 2 ug/dL (0-20)
[2024-04-16 13:09] LABS: Estmated Average Glucose 137; Hemoglobin A1C 6.4 % (4.0-6.0)
[2024-04-16 13:26] LABS: 25 Hydroxy Vitamin D 36 ng/mL (30-100); Alanine Aminotransferase 13 U/L (0-33); Albumin Level 4.5 g/dL (3.5-5.2); Alkaline Phosphatase 102 U/L (35-105); Anion Gap 10.4 (5-19); Aspartate Amino Transferase 12 U/L (0-32); Blood Urea Nitrogen 12 mg/dL (8-23); Calcium 9.1 mg/dL (8.5-10.5); Carbon Dioxide 32 mmol/L (22-29); Chloride 100 mmol/L (98-107); Chol HDL Ratio 5.22 mg/dL (0.0-4.40); Cholesterol 193 mg/dL (0-200); Globulin 2.8 g/dL (1.3-4.6); Glomerular Filtration Rate 84.2 mL/min (90-130); Glucose 209 mg/dL (65-115); HDL Cholesterol 37 mg/dL (60-100); LDL Cholesterol Calculated 105 mg/dL (50-129); LDL HDL Ratio 2.84 RATIO (0.00-3.22); Osmolality Calculated 292 mOsm/kg (285-295); Potassium 4.4 mmol/L (3.5-5.1); Sodium 138 mmol/L (136-145); Total Bilirubin 0.2 mg/dL (0.15-1.2); Total Protein 7.3 g/dL (6.6-8.7); Triglycerides 257 mg/dL (0-150)
== END 2024-04-16 12:16 | disposition home or self-care (01) ==
LOC: LAB 12:15
PROVIDERS: PCP Nurse Practitioner Family; Visit Provider Internal Medicine
DX: E55.9 Vitamin D deficiency, unspecified (principal); M81.0 Age-related osteoporosis without current pathological fracture; E11.69 Type 2 diabetes mellitus with other specified complication
CPT/HCPCS: 36415; 80053; 80061; 82044; 82306; 83036

== ENCOUNTER → 2024-05-09 09:27 | Outpatient (BNVA) | payer MEDICARE, SELFPAY | PROVIDERS: PCP Nurse Practitioner Family; Visit Provider Internal Medicine | DX: E55.9 Vitamin D deficiency, unspecified (principal); E11.9 Type 2 diabetes mellitus without complications; E11.69 Type 2 diabetes mellitus with other specified complication; E78.5 Hyperlipidemia, unspecified; E11.40 Type 2 diabetes mellitus with diabetic neuropathy, unspecified; R63.5 Abnormal weight gain; S32.9XXA Fracture of unspecified parts of lumbosacral spine and pelvis, initial encounter for closed fracture; M81.0 Age-related osteoporosis without current pathological fracture | CPT/HCPCS: 99214 ==

== ENCOUNTER 2024-05-26 11:02 | Emergency (ER) | payer MEDICARE, SELFPAY ==
[2024-05-26 11:05] VITALS: BP 119/79; PULSE 91; RESP 18; TEMP 36.7; O2SAT 98; BMI 29.2
--- NOTE | 2024-05-26 11:06 | ECG_ITS ---
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
--- NOTE | 2024-05-26 11:28 | XRR_ITS ---
PROCEDURE INFORMATION: Exam: XR Chest Exam date and time: 05/26/2024 11:47 AM Age: 63 years old Clinical indication: Chest pressure; Chest pain TECHNIQUE: Imaging protocol: Radiologic exam of the chest. Views: 1 view. COMPARISON: CR XR chest 2V* [id number] 12/12/2019 5:17 PM FINDINGS: Lungs: Unremarkable. No consolidation. Pleural spaces: Unremarkable. No pleural effusion. No pneumothorax. Heart/Mediastinum: Unremarkable. No cardiomegaly. Bones/joints: Unremarkable. Gastrointestinal tract: Air dilated loops of bowel in the upper mid abdomen and left upper quadrant XR/XR chest 1V portable [id number] IMPRESSION: No acute cardiopulmonary findings.
[2024-05-26 11:34] LABS: Basophils # 0.1 10^3/uL (0.0-0.1); Basophils % 0.6 %; Eosinophils # 0.2 10^3/uL (0.0-0.8); Eosinophils % 1.8 %; Hematocrit 44.9 % (36-47); Lymphocytes # 2.3 10^3/uL (0.8-4.8); Lymphocytes % 18.1 %; Mean Corpuscular HGB Conc 32.1 g/dL (30-55); Mean Corpuscular Hemoglobin 28.9 pg (27-33); Mean Platelet Volume 10.2 fL (7.4-10.4); Monocytes # 0.8 10^3/uL (0.2-0.9); Monocytes % 6.3 %; Neutrophils # 9.39 10^3/uL (1.8-7.7); Nucleated Red Blood Cells % 0 %; Platelet Count 288 10^3/cmm (157-399); Red Blood Count 4.99 10^6/uL (3.85-5.65); White Blood Count 12.87 10^3/uL (3.29-11.43)
[2024-05-26 11:39] LABS: INR 0.91 (0.8-1.2)
[2024-05-26] MEDS: sodium chloride 0.9% 1,000 ML 999 ML IV (11:41)
[2024-05-26] MEDS: aspirin 81 mg Chew Tablet 324 MG PO (11:41)
[2024-05-26 11:42] LABS: D Dimer <= 0.27 ug/mLFEU (0-0.59)
[2024-05-26 11:48] VITALS: BP 119/79; PULSE 78; O2SAT 94
[2024-05-26 11:48] LABS: Troponin(5th) Baseline < 6 ng/L (0-10)
[2024-05-26 11:58] LABS: Alanine Aminotransferase 16 U/L (0-33); Albumin Level 4.3 g/dL (3.5-5.2); Alkaline Phosphatase 91 U/L (35-105); Anion Gap 17.5 (5-19); Aspartate Amino Transferase 20 U/L (0-32); Blood Urea Nitrogen 24 mg/dL (8-23); Calcium 9.2 mg/dL (8.5-10.5); Carbon Dioxide 22 mmol/L (22-29); Chloride 102 mmol/L (98-107); Creatinine Clr Calc Pharmacy 68.2088; Globulin 2.7 g/dL (1.3-4.6); Glucose 167 mg/dL (65-115); Lipase 48 U/L (13-60); Osmolality Calculated 292 mOsm/kg (285-295); Potassium 4.5 mmol/L (3.5-5.1); Sodium 137 mmol/L (136-145); Total Bilirubin 0.3 mg/dL (0.15-1.2)
[2024-05-26 12:04] LABS: NT Pro B Type Natriuretic Pept < 36 pg/mL (0-125)
[2024-05-26 12:30] VITALS: PULSE 70; RESP 18; O2SAT 98
[2024-05-26 12:44] LABS: Influenza A NEGATIVE (Negative); Influenza B NEGATIVE (Negative); Respiratory Syncytial Virus Ce NEGATIVE (Negative); SARS-CoV-2 PCR NEGATIVE (Negative)
[2024-05-26 13:23] VITALS: BP 110/75; PULSE 75; RESP 16; O2SAT 97
--- NOTE | 2024-05-26 13:30 | ECG_ITS ---
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: : 1960 Requested By: Tavares Goodwin Order Number: [id number] Reading MD: FAYE FERRIS Measurements Intervals [place] Rate: 68 P: 5 MA: 165 QRS: -8 QRSD: 77 T: 22 QT: 398 QTc: 424 Interpretive Statements SINUS RHYTHM LOW QRS VOLTAGE IN PRECORDIAL LEADS [QRS DEFLECTION < 1.0 mV IN CHEST LEADS] MINIMAL VOLTAGE CRITERIA FOR LVH, CONSIDER NORMAL VARIANT [MEETS CRITERIA IN ONE OF: R(aVL), S(V1), R(V5), R(V5/V6)+S(V1)] Compared to ECG 05/26/2024 11:06:04 Low QRS voltage now present T-wave abnormality no longer present Electronically Signed On 05-28-2024 23:50:57 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
[2024-05-26 14:14] LABS: Troponin 5 2HR 6.83 ng/L (0-10); Troponin 5 2HR Delta 0.83001 ABS# (0-10)
[2024-05-26 15:02] VITALS: BP 115/71; PULSE 72; RESP 18; O2SAT 96
[2024-05-26 15:15] LABS: Bilirubin Urine 1+ (Negative); Blood Urine Negative (Negative); Glucose Urine UA Negative (Normal); Ketones Urine Trace (Negative); Leukocyte Esterase Urine Negative (Negative); Nitrate Urine Negative (Negative); Protein Urine Trace (Negative); Urine Appearance Clear (CLEAR); Urine Color Dark Yellow (Yellow)
[2024-05-26 15:20] LABS: Add Urine Microscopic? YES; Bacteria Urine 1+ /hpf; RBC Urine 0-4 /hpf (0-2); Specific Gravity, Urine 1.033 (1.005-1.030); Squamous Epithelial Cell Urine 15-25 /hpf (0-5); UA Manual Slide Review YES
[2024-05-26 15:59] VITALS: BP 115/71; PULSE 81; O2SAT 98
--- NOTE | 2024-05-26 17:55 | W.ED.CHESTPA ---
HPI - Chest Pain General: Chief Complaint: Chest Pain Stated Complaint: chest pain Time Seen by Provider: 05/26/24 11:20 History of Present Illness: This patient is a 63-year-old white female who presents to the emergency department stating that she has not been feeling well for about 10 days now. She has been having chest pain with pain radiating into the right arm. She has had headaches and back pain. Diaphoresis. Fog headedness. She has not had a fever or cough. The chest pain started yesterday. The rest of the symptoms have been going on for about 10 days. She does have a history of hypertension and ojk-educvdu-cclbxopno diabetes. Associated symptoms: Reports diaphoresis Related Data Home Medications ?Medication ?Instructions ?Recorded ?Confirmed aspirin 81 mg tablet,delayed 81 mg PO DAILY 02/15/21 05/26/24 release calcium 600 mg (as 1 tab PO DAILY 05/26/24 05/26/24 carbonate)-vitamin D3 5 mcg (200 unit) tablet hsbkrqjk-pktl-wiyh 8 mg-folic 400 1 tab PO DAILY 05/26/24 05/26/24 mcg-K 50 mcg-lutein 300 mcg tablet (Centrum Silver Women) Previous Rx's ?Medication ?Instructions ?Recorded pen needle, diabetic 31 gauge x #100 ea 07/27/22 5/16 (BD Ultra-Fine Short Pen Needle) trazodone 100 mg tablet See Rx Instructions .Route 02/28/24 .COMPLEX #180 tabs acyclovir 400 mg tablet See Rx Instructions .Route 03/06/24 .COMPLEX #90 tabs venlafaxine 100 mg tablet 100 mg PO DAILY #90 tabs 03/06/24 rivastigmine tartrate 3 mg capsule See Rx Instructions .Route 04/23/24 .COMPLEX #60 caps tirzepatide 5 mg/0.5 mL 5 mg (0.5 mL) SUBCUT Q7D #2 mL 05/09/24 subcutaneous pen injector (Rylie) lisinopril 20 mg tablet See Rx Instructions .Route 05/13/24 .COMPLEX #60 tabs abaloparatide (Tymlos) 80 mcg (0.04 mL) SUBCUT DAILY 05/14/24 #1.56 mL Allergies Allergy/AdvReac Type Severity Reaction Status Date / Time No Known Allergies Allergy Verified 05/09/24 08:13 Review of Systems General: Reports: 10 or more systems reviewed and unremarkable except in HPI and below Const: Reports: fatigue, malaise and diaphoresis Card: Reports: chest pain Musc: Reports: back pain PFSH ED PFSH: Medical History Anxiety Type 2 diabetes mellitus without complication Hyperlipidemia History of cleft palate DM type 2 (diabetes mellitus, type 2) Hypertension Surgical History H/O: section H/O: hysterectomy Family History Mother Cancer breast Alzheimer disease Father Thyroid disease Social History Smoking and tobacco/nicotine status: never used tobacco/nicotine Quit status (tobacco/nicotine): has quit using Year quit tobacco: 2020 - >0.5 PPD x 5 Years Alcohol intake: current Alcohol intake frequency: holidays/special occasions only Substance/Drug Use: never Lives independently: Yes Household members: spouse Marital status: Current occupational status: employed Current occupation: retired Do you think of yourself as: Straight/Heterosexual Current gender identity: Female Physical Exam Const: COMMON NORMALS: no acute distress, patient oriented x3 and no limitations GENERAL APPEARANCE: cooperative and comfortable HENMT: COMMON NORMALS: normocephalic, atraumatic, Normal nasal mucous membranes and turbinates present, moist oral mucous membranes and oropharynx normal HEAD & SCALP: normal to inspection, normocephalic and atraumatic FACE & SINUS: normal facial exam NOSE: Normal nasal mucous membranes and turbinates present Eye: COMMON NORMALS: Equal, round and reactive pupils present, EOMs intact bilaterally and conjunctivae normal GENERAL EYE: appearance normal, both eyes and all related structures CONJUNCTIVA: Yes conjunctivae normal PUPIL: Yes Equal, round and reactive pupils present Neck/C-Spine: COMMON NORMALS: supple and no JVD Chest: COMMONS NORMALS: normal inspection of the chest Resp: COMMON NORMALS: normal respiratory effort and clear to auscultation bilaterally AUSCULTATION: clear to auscultation bilaterally Cardio: COMMON NORMALS: no JVD, regular rate, regular rhythm, No gallops present (Cardio), No murmurs present (Cardio) and No rub (Cardio) RATE: regular rate RHYTHM: regular rhythm GI: COMMON NORMALS: Normal to inspection, nondistended, normoactive bowel sounds present, Soft to palpation and non-tender AUSCULTATION: Yes normoactive bowel sounds PALPATION: Yes Soft to palpation : COMMON NORMALS: Yes no CVA tenderness BLADDER/KIDNEY EXAM: Yes no CVA tenderness Back/Pelvis: COMMON NORMALS: no CVA tenderness and thoracic and lumbar spine normal to inspection Extremity: COMMON NORMALS: normal to inspection Neuro: COMMON NORMALS: patient oriented x3 and CN's II-XII intact bilaterally Psych: COMMON NORMALS: mental status grossly normal, Normal thought process present and cooperative THOUGHT PROCESS: Normal thought process present Skin: COMMON NORMALS: no rashes or lesions noted, turgor normal and no jaundice GENERAL SKIN EXAM: no rashes or lesions noted and turgor normal Course Vital Signs: Vital signs: Vital Signs Temperature 98.1 F 05/26/24 11:05 Pulse Rate 81 05/26/24 15:59 Respiratory Rate 18 05/26/24 15:02 Blood Pressure 115/71 05/26/24 15:59 Pulse Oximetry 98 05/26/24 15:59 Oxygen Delivery Me thod Room Air 05/26/24 13:23 MDM - Chest Pain Medical Decision Making EKG reveals sinus rhythm with no ST segment abnormalities. Chest x-ray was normal. CBC revealed a white blood cell count of 12.9. CMP was normal. Lipase 48. BNP was less than 36. Coags normal. D-dimer less than 0.27. Baseline troponin was less than 6 with a 2-hour level of 6.8. Urine analysis was normal. COVID, flu and RSV were negative. Not sure what is causing the patient's symptoms. May be a viral infection. Recommended she push fluids and get some rest. Follow-up with her primary care provider later this week for recheck. She was discharged in stable condition. Lab Data 05/26/24 11:14 05/26/24 11:14 Radiology Impressions Chest X-Ray 05/26/24 11:28 IMPRESSION: No acute cardiopulmonary findings. Laboratory Results WBC 12.87 10^3/uL (3.29-11.43) H 05/26/24 11:14 RBC 4.99 10^6/uL (3.85-5.65) 05/26/24 11:14 Hgb 14.40 g/dL (11.27-16.99) 05/26/24 11:14 Hct 44.9 % (36-47) 05/26/24 11:14 MCV 90.0 fl (85-98) 05/26/24 11:14 MCH 28.9 pg (27-33) 05/26/24 11:14 MCHC 32.1 g/dL (30-55) 05/26/24 11:14 RDW 13.0 % (12.1-15.1) 05/26/24 11:14 Plt Count 288 10^3/cmm (157-399) 05/26/24 11:14 MPV 10.2 fL (7.4-10.4) 05/26/24 11:14 Neut % (Auto) 73.0 % 05/26/24 11:14 Lymph % (Auto) 18.1 % 05/26/24 11:14 [place] % (Auto) 6.3 % 05/26/24 11:14 Eos % (Auto) 1.8 % 05/26/24 11:14 Baso % (Auto) 0.6 % 05/26/24 11:14 Neut # (Auto) 9.39 10^3/uL (1.8-7.7) H 05/26/24 11:14 Lymph # (Auto) 2.3 10^3/uL (0.8-4.8) 05/26/24 11:14 [place] # (Auto) 0.8 10^3/uL (0.2-0.9) 05/26/24 11:14 Eos # (Auto) 0.2 10^3/uL (0.0-0.8) 05/26/24 11:14 Baso # (Auto) 0.1 10^3/uL (0.0-0.1) 05/26/24 11:14 Nucleated RBC % (auto) 0 % 05/26/24 11:14 Nucleated RBCs # 0.0 /100WBC 05/26/24 11:14 PT 12.90 SECONDS (12.1-14.9) 05/26/24 11:14 INR 0.91 (0.8-1.2) 05/26/24 11:14 APTT 26.0 SECONDS (23.9-36.7) 05/26/24 11:14 D-Dimer <= 0.27 ug/mLFEU (0-0.59) 05/26/24 11:14 Sodium 137 mmol/L (136-145) 05/26/24 11:14 Potassium 4.5 mmol/L (3.5-5.1) 05/26/24 11:14 Chloride 102 mmol/L (98-107) 05/26/24 11:14 Carbon Dioxide 22 mmol/L (22-29) 05/26/24 11:14 Anion Gap 17.5 (5-19) 05/26/24 11:14 BUN 24 mg/dL (8-23) H 05/26/24 11:14 Creatinine 0.9 mg/dL (0.5-0.9) 05/26/24 11:14 GFR Calculation 63.0 mL/min (90-130) L 05/26/24 11:14 Glucose 167 mg/dL (65-115) H 05/26/24 11:14 Calculated Osmolality 292 mOsm/kg (285-295) 05/26/24 11:14 Calcium 9.2 mg/dL (8.5-10.5) 05/26/24 11:14 Total Bilirubin 0.3 mg/dL (0.15-1.2) 05/26/24 11:14 AST 20 U/L (0-32) 05/26/24 11:14 ALT 16 U/L (0-33) 05/26/24 11:14 Alkaline Phosphatase 91 U/L (35-105) 05/26/24 11:14 Troponin T Baseline < 6 ng/L (0-10) 05/26/24 11:14 Troponin T 120 Minute 6.83 ng/L (0-10) 05/26/24 13:40 Delta Troponin T 0.68241 ABS# (0-10) 05/26/24 13:40 NT-Pro-B Natriuret Pep < 36 pg/mL (0-125) 05/26/24 11:14 Total Protein 7.0 g/dL (6.6-8.7) 05/26/24 11:14 Albumin 4.3 g/dL (3.5-5.2) 05/26/24 11:14 Globulin 2.7 g/dL (1.3-4.6) 05/26/24 11:14 Lipase 48 U/L (13-60) 05/26/24 11:14 Urine Color Dark yellow (Yellow) A 05/26/24 15:05 Urine Appearance Clear (CLEAR) 05/26/24 15:05 Urine pH 5.0 (5-7) 05/26/24 15:05 Ur Specific [place] 1.033 (1.005-1.030) H 05/26/24 15:05 Urine Protein Trace (Negative) A 05/26/24 15:05 Urine Glucose (UA) Negative (Normal) 05/26/24 15:05 Urine Ketones Trace (Negative) 05/26/24 15:05 Urine Blood Negative (Negative) 05/26/24 15:05 Urine Nitrate Negative (Negative) 05/26/24 15:05 Urine Bilirubin 1+ (Negative) H 05/26/24 15:05 Urine Urobilinogen 1.0 mg/dL (Negative) 05/26/24 15:05 Ur Leukocyte Esterase Negative (Negative) 05/26/24 15:05 Urine RBC 0-4 /hpf (0-2) H 05/26/24 15:05 Urine WBC 5-10 /hpf (0-5) H 05/26/24 15:05 Ur Squamous Epith Cells 15-25 /hpf (0-5) H 05/26/24 15:05 Amorphous Sediment Not Reportable 05/26/24 15:05 Urine Bacteria 1+ /hpf (NONE) H 05/26/24 15:05 Influenza A (PCR) Negative (Negative) 05/26/24 11:55 Influenza Type B (PCR) Negative (Negative) 05/26/24 11:55 RSV (PCR) Negative (Negative) 05/26/24 11:55 SARS-CoV-2 (PCR) Negative (Negative) 05/26/24 11:55 All radiology interpretation(s) finalized by discharge Discharge Plan Discharge Patient Disposition: Home Clinical Impression: Chest pain Qualifiers: Chest pain type: unspecified Qualified Code(s): R07.9 - Chest pain, unspecified Condition: Stable Prescriptions: No Action aspirin 81 mg tablet,delayed release (DR/EC) 81 mg PO DAILY Mounjaro 5 mg/0.5 mL pen injector 5 mg SUBCUT Q7D Qty: 2 3RF acyclovir 400 mg tablet See Rx Instructions .ROUTE .COMPLEX Qty: 90 0RF Dose Instruction: Take 1 tablet by mouth once daily Rx Instructions: Take 1 tablet by mouth once daily venlafaxine 100 mg tablet 100 mg PO DAILY Qty: 90 0RF (DME) pen needle, diabetic [BD Ultra-Fine Short Pen Needle] 31 gauge x 5/16 needle See Rx Instructions .Route Qty: 100 0RF Rx Instructions: As directed trazodone 100 mg tablet See Rx Instructions .ROUTE .COMPLEX Qty: 180 0RF Dose Instruction: Take 1 tablet by mouth twice daily Rx Instructions: Take 1 tablet by mouth twice daily rivastigmine tartrate 3 mg capsule See Rx Instructions .ROUTE .COMPLEX Qty: 60 2RF Dose Instruction: Take 1 capsule by mouth twice daily Rx Instructions: Take 1 capsule by mouth twice daily lisinopril 20 mg tablet See Rx Instructions .ROUTE .COMPLEX Qty: 60 0RF Dose Instruction: Take 1 tablet by mouth twice daily Rx Instructions: Take 1 tablet by mouth twice daily Tymlos 80 mcg (3,120 mcg/1.56 mL) pen injector 80 mcg SUBCUT DAILY Qty: 1.56 3RF Rx Instructions: inject into abdomen; do not inject within 2 inches of belly button/navel; rotate sites calcium carbonate-vitamin D3 [Calcium + D] 600 mg-5 mcg (200 unit) Tablet 1 tab PO DAILY Centrum Silver Women 8 mg iron-400 mcg-50 mcg Tablet 1 tab PO DAILY Discharge Orders: Discharge ED (Routine); Ordered 05/26/24 Ordered By: Tavares Goodwin Referrals: Lyudmila Branch FNP [Primary Care Provider] - Activity Restrictions/Additional Instructions: Follow-up with your primary care provider later this week for recheck. Print Language: Citizen Of [place] Coding Level of Care Code ED Manager Financial Reporting for Sharlene Colon
== END 2024-05-26 15:59 | disposition home or self-care (01) ==
PROVIDERS: Emergency Provider Emergency Medicine; PCP Nurse Practitioner Family
DX: R07.9 Chest pain, unspecified (principal); I10 Essential (primary) hypertension; Z79.82 Long term (current) use of aspirin; E11.9 Type 2 diabetes mellitus without complications; E78.5 Hyperlipidemia, unspecified
CPT/HCPCS: 36415; 71045; 80053; 81001; 83690; 83880; 84484; 85025; 85378; 85610; 85730; 87637; 93005; 99285; J7030

== ENCOUNTER 2024-12-03 10:19 | Outpatient (CLI) | payer MEDICARE, SELFPAY ==
[2024-12-03 12:07] LABS: Alanine Aminotransferase 14 U/L (0-33); Albumin Level 4.3 g/dL (3.5-5.2); Alkaline Phosphatase 77 U/L (35-105); Anion Gap 12.5 (5-19); Aspartate Amino Transferase 15 U/L (0-32); Blood Urea Nitrogen 16 mg/dL (8-23); Calcium 9.3 mg/dL (8.5-10.5); Chloride 99 mmol/L (98-107); Globulin 2.9 g/dL (1.3-4.6); Glucose 115 mg/dL (65-115); Osmolality Calculated 286 mOsm/kg (285-295); Potassium 4.5 mmol/L (3.5-5.1); Sodium 137 mmol/L (136-145); Total Protein 7.2 g/dL (6.6-8.7)
[2024-12-03 12:20] LABS: Carbon Dioxide 30 mmol/L (22-29)
== END 2024-12-03 10:20 | disposition home or self-care (01) ==
PROVIDERS: PCP Nurse Practitioner Family; Visit Provider Internal Medicine
DX: E55.9 Vitamin D deficiency, unspecified (principal); E11.9 Type 2 diabetes mellitus without complications
CPT/HCPCS: 36415; 80053; 82306

== ENCOUNTER → 2024-12-04 08:17 | Outpatient (BNVA) | payer MEDICARE, SELFPAY | PROVIDERS: PCP Nurse Practitioner Family; Visit Provider Internal Medicine | DX: E11.40 Type 2 diabetes mellitus with diabetic neuropathy, unspecified (principal); E55.9 Vitamin D deficiency, unspecified; E78.5 Hyperlipidemia, unspecified; R63.5 Abnormal weight gain; Z79.85 Long-term (current) use of injectable non-insulin antidiabetic drugs; R63.4 Abnormal weight loss | CPT/HCPCS: 99214 ==

== ENCOUNTER 2025-02-25 13:33 | Outpatient (CLI) | payer MEDICARE, SELFPAY ==
[2025-02-25 14:48] LABS: Creatinine Urine, Random 252 mg/dL (28-217); Microalbum Creatinine Ratio Ur 8 mg/dL (0-20)
[2025-02-25 14:58] LABS: Alanine Aminotransferase 15 U/L (0-33); Albumin Level 4.4 g/dL (3.5-5.2); Alkaline Phosphatase 75 U/L (35-105); Anion Gap 16.4 (5-19); Aspartate Amino Transferase 15 U/L (0-32); Blood Urea Nitrogen 22 mg/dL (8-23); Calcium 9.6 mg/dL (8.5-10.5); Carbon Dioxide 26 mmol/L (22-29); Chloride 101 mmol/L (98-107); Cholesterol 218 mg/dL (0-200); Globulin 2.8 g/dL (1.3-4.6); Glucose 108 mg/dL (65-115); HDL Cholesterol 39 mg/dL (60-100); Osmolality Calculated 292 mOsm/kg (285-295); Potassium 4.4 mmol/L (3.5-5.1); Sodium 139 mmol/L (136-145); Total Protein 7.2 g/dL (6.6-8.7); Triglycerides 321 mg/dL (0-150)
[2025-02-25 15:01] LABS: Estmated Average Glucose 126; Hemoglobin A1C 6.0 % (4.0-6.0)
== END 2025-02-25 13:34 | disposition home or self-care (01) ==
PROVIDERS: PCP Nurse Practitioner Family; Visit Provider Internal Medicine
DX: E11.69 Type 2 diabetes mellitus with other specified complication (principal); E55.9 Vitamin D deficiency, unspecified
CPT/HCPCS: 36415; 80053; 80061; 82044; 82306; 83036